=== PATIENT | male | born 1990 | race Caucasian/White ===

== ENCOUNTER → 2020-12-09 12:36 | Outpatient (CLI) | payer OTHER, MEDICAID, SELFPAY ==
[2020-12-09 14:39] LABS: COVID19 -Nasal RAPID Negative (Negative)
== END ==
PROVIDERS: Family Provider Orthopaedic Surgery; PCP Family Medicine; Visit Provider Family Medicine Sleep Medicine
DX: Z20.822 Contact with and (suspected) exposure to COVID-19 (principal); Z01.812 Encounter for preprocedural laboratory examination
CPT/HCPCS: 87635; C9803

== ENCOUNTER → 2022-01-07 11:06 | Outpatient (CLI) | payer OTHER, SELFPAY ==
[2022-01-07 13:02] LABS: Lithium 0.5 mmol/L (0.6-1.2)
== END ==
PROVIDERS: Family Provider Orthopaedic Surgery; PCP Family Medicine; Referring Provider Psychiatry & Neurology Psychiatry; Visit Provider Psychiatry & Neurology Psychiatry
DX: F31.81 Bipolar II disorder (principal)
CPT/HCPCS: 36415; 80178

== ENCOUNTER → 2022-04-04 13:38 | Outpatient (CLI) | payer OTHER, SELFPAY ==
--- NOTE | 2022-04-04 | DI.CT.S_ITS ---
PROCEDURE: CT ABDOMEN PELVIS W CON INDICATIONS: Bacterial intestinal infection, unspecified TECHNIQUE: After the administration of IV contrast, axial sections were acquired from the lung bases to the pubic symphysis. Coronal and sagittal reformats were performed. For radiation dose reduction, the following was used: automated exposure control, adjustment of mA and/or kV according to patient size. COMPARISON: None. FINDINGS: Image quality: Excellent. Lung bases: Unremarkable. Heart: No significant findings. ABDOMEN: Liver: Unremarkable. Gallbladder: Unremarkable Biliary ducts: Unremarkable. Pancreas: Unremarkable. Spleen: Unremarkable. Adrenal Glands: Unremarkable. Kidneys and Ureters: Unremarkable. Stomach and Bowel: No bowel obstruction. Cecal stool ball. No convincing inflammatory changes in the small or large bowel. Peritoneum: Small amount of pelvic free fluid. Ventral Wall: No hernia. Abdominal Nodes: No retroperitoneal or mesenteric adenopathy by size criteria. Vessels: Aorta and inferior vena cava are normal in size. PELVIS: Pelvic Organs: Unremarkable. Bladder: Thickening at the urachus attachment at dome, without distinct mass identified. Pelvic Nodes: No enlarged lymph nodes. Miscellaneous: No inguinal hernias are seen. Bones: No acute or suspicious osseous finding. IMPRESSION: No acute abdominopelvic pathology. If there is concern for inflammatory bowel disorders, consider MR enterography for more sensitive evaluation. Small amount of pelvic free fluid of uncertain significance significance. Other incidental findings above. Dictated by: Jefferson Roca M.D. on 04/04/2022 at 15:28 Approved by: Jefferson Roca M.D. on 04/04/2022 at 15:34
== END ==
PROVIDERS: Family Provider Orthopaedic Surgery; PCP Family Medicine
DX: A04.9 Bacterial intestinal infection, unspecified (principal)
CPT/HCPCS: 74177; Q9967

== ENCOUNTER 2025-01-03 07:56 | Day surgery (SDC) | payer OTHER, SELFPAY ==
[2024-12-31 10:58] VITALS: BMI 19.6
[2025-01-03] VITALS (11 sets, daily range): BP systolic 75–112; BP diastolic 32–75; PULSE 45–58; RESP 11–16; TEMP 36.1–36.5; O2SAT 95–99; BMI 19.6
[2025-01-03] MEDS: LACTATED RINGERS 1,000 ML 42 ML IV (08:38)
[2025-01-03] MEDS: ACETAMINOPHEN 325 MG TABLET 975 MG PO (08:44)
--- NOTE | 2025-01-03 09:25 | PM.PREOP ---
Pre-operative Note Interval Note History & Physical reviewed/Exam performed by Physician: Yes Changes to H&P: No
--- NOTE | 2025-01-03 09:26 | P.OP_ITS ---
Operative Date/Time/Diagnoses Date of procedure: 01/03/25 Time of procedure: 10:44 Pre-op diagnosis: Right great toe recurrent ingrowing nail. Post-op diagnosis: same Procedure & Clinicians Procedure: Right hallux total chemical matrixectomy Same procedure as scheduled: Yes Indications: 34-year-old male with ongoing painful ingrowing toenail to the right great toe. Conservative measures have failed to alleviate his pain and he wished to have surgical intervention at this time. We spoke about the risks and potential complications as well as expected outcomes and alternatives. Consent was reviewed and given, there were no contraindications to the procedure at this time. Surgeon: Kellie Hathaway Click Yes if Unassisted: Yes Anesthesia Type: MAC +/- and Sedation Operative Notes Findings: Ingrowing nail without purulent discharge right great toenail. Closure Type: not applicable Specimen(s): none sent Estimated Blood Loss (mL): 1 Blood products transfused: none Procedure in detail: The patient was brought to the operating room and placed on the operating table in the supine position. Well-positioned, appropriately aligned and supported. After induction of iv sedation, local anesthesia the right great toe was performed using the recorded injectables. The foot and ankle were prepped and draped in the usual aseptic manner. The [place] drain was placed about the right hallux base and that was considered tourniquet start time. Patient was brought to the operating room and placed on the operative table in supine position. After check of anesthesia the right hallux nail was removed gently in total, including the medial and lateral borders where they had regrown as spicules. The surrounding skin was protected with triple antibiotic ointment and a series of 4 applications of phenol at 30 sec each were placed in the area. Following each the area was curetted and after the last it was rinsed with alcohol. The [place] tourniquet was removed after approximately 7 minutes, a prompt hyperemic response was seen to the toe. The area was cleaned and dressed with triple antibiotic ointment, Xeroform, 4x4s, and gently placed coban. He is placed in a post op shoe and stocking and transferred to the PACU with vital signs stable an d vascular status intact to the toe. Complications: none Post-operative Condition: stable Disposition: PACU Plan for aftercare: Following a period of postoperative monitoring, the patient will be discharged to home on written and oral postoperative instructions including keeping the dressing dry and intact until tomorrow when his first soak will be. Weight bearing as tolerated. Elevate the foot when seated home. DVT prevention techniques have been reviewed. Soaking and dressing instructions were reviewed prior and again via Nursing. Follow up appt has been made within 7-10 days.
[2025-01-03] MEDS: CEFAZOLIN 2 GM/100 ML PREMIX 100 ML IV (09:35)
--- NOTE | 2025-01-03 09:56 | SUR.OPER ---
Supine on padded OR bed, head on pillow, arms secured on padded arm boards at <90 degrees abduction, legs uncrossed, safety belt at thigh, tape over blanket over lower non operative leg.
[2025-01-03] MEDS: BACITRACIN 28 GM OINT 1 APPLIC TOP (10:01)
[2025-01-03] MEDS: LIDOCAINE 2% INJ MDV 20ML 10 ML INJ (10:04)
[2025-01-03] MEDS: BUPIVACAINE 0.5% (PF) 30 ML VIAL INJ (10:05)
[2025-01-03] MEDS: LACTATED RINGERS 1,000 ML 999 ML IV (10:44)
== END 2025-01-03 11:21 | disposition home or self-care (01) ==
PROVIDERS: Family Provider Orthopaedic Surgery; PCP Family Medicine; Referring Provider Podiatrist; Visit Provider Podiatrist
PROC: 0HTRXZZ Resection of Toe Nail, External Approach (ICD-10-PCS; CPT 11750; principal; 2025-01-03 09:15)
DX: L60.3 Nail dystrophy (principal); L60.0 Ingrowing nail; M79.674 Pain in right toe(s)
CPT/HCPCS: 11750; J0690; J1100; J1885; J2250; J2405; J2704; J3010